=== PATIENT | male | born 1990 | race Hispanic/Latino ===

== ENCOUNTER 2017-07-20 19:32 | Emergency (ER) | payer OTHER ==
[2017-07-20 21:19] LABS: Absolute Lymphocytes (CBC) 2.3 K/uL (0.7-4.9); Absolute Monocytes 0.9 K/uL (0.1-1.3); Absolute Neutrophil 5.2 K/uL (1.8-8.0); Basophils % 0.6 % (0-1.3); Eosinophils % 1.6 % (0-4.4); Hematocrit 42.1 % (39.6-49.0); Lymphocytes % 26.7 % (15.3-44.8); MCH 30.4 pg (27.0-35.0); MCV 88.7 fL (80-100); MPV 9.5 fL (7.6-11.3); Monocytes % 10.6 % (3.3-12.3); RBC Red Blood Cell Count 4.75 M/uL (4.33-5.43)
[2017-07-20 21:27] LABS: Bicarbonate 29 mEq/L (21-31); Glucose Level 99 mg/dL (65-120); Potassium 4.3 mEq/L (3.6-5.0); Sodium Level 139 mEq/L (135-145)
[2017-07-20 21:28] LABS: BUN Blood Urea Nitrogen 14 mg/dL (6-20)
--- NOTE | 2017-07-20 22:24 | ER ---
Nurse's Notes [facility] Name: Bill Braun Age: 27 yrs Sex: Male : 1990 Arrival Date: 07/20/2017 Time: 19:34 Bed 7 Private MD: Diagnosis: Dizziness and giddiness;Cardiac murmurs and other cardiac sounds Presentation: 07/20 19:52 Presenting complaint: Patient states: I had a near syncopal episode at work and I have la1 been having pain in my left testicular area, Pt denies redness or swelling. Transition of care: patient was not received from another setting of care. Onset of symptoms was July 20, 2017. Initial Sepsis Screen: Does the patient meet any 2 criteria? No. Patient's initial sepsis screen is negative. Does the patient have a suspected source of infection? No. Patient's initial sepsis screen is negative. Care prior to arrival: None. 19:52 Method Of Arrival: Ambulatory la1 19:52 Method Of Arrival: Ambulatory la1 19:52 Acuity: NICHOLAS 3 la1 Historical: - Allergies: 19:53 No Known Allergies; la1 - PMHx: 19:53 None; la1 - Immunization history:: Adult Immunizations up to date. - Social history:: Smoking status: Patient/guardian denies using tobacco. Screenin:39 Abuse screen: Denies threats or abuse. Denies injuries from another. Nutritional aa1 screening: No deficits noted. Tuberculosis screening: No symptoms or risk factors identified. Fall Risk None identified. Assessment: 20:39 General: Appears in no apparent distress. comfortable, Behavior is calm, cooperative, aa1 appropriate for age. Pain: Complains of pain in groin Pain currently is 0 out of 10 on a pain scale. Is intermittent. Neuro: Level of Consciousness is awake, alert, obeys commands, Oriented to person, place, time, situation, Moves all extremities. Full function Gait is steady. Cardiovascular: Reports chest pain, which is intermittent Heart tones S1 S2 present Rhythm is regular. Respiratory: Airway is patent Respiratory effort is even, unlabored, Respiratory pattern is regular, symmetrical. GI: No signs and/or symptoms were reported involving the gastrointestinal system. : No signs and/or symptoms were reported regarding the genitourinary system. EENT: No signs and/or symptoms were reported regarding the EENT system. Derm: Skin is intact, is healthy with good turgor, Skin is pink, warm \T\ dry. Musculoskeletal: Circulation, motion, and sensation intact. Capillary refill < 3 seconds. Vital Signs: 19:53 BP 140 / 96; Pulse 76; Resp 19; Temp 98.0(TE); Pulse Ox 100% on R/A; Weight 83.91 kg; la1 Height 5 ft. 8 in. (172.72 cm); 21:20 BP 114 / 95; Pulse 18; Resp 18; Pulse Ox 100% on R/A; mg2 22:33 BP 125 / 78; Pulse 75; Resp 18; Pulse Ox 97% on R/A; Pain 0/10; mg2 19:53 Body Mass Index 28.13 (83.91 kg, 172.72 cm) la1 ED Course: 19:34 Patient arrived in ED. am2 19:53 Triage completed. la1 19:53 Arm band placed on left wrist. la1 20:38 Pawan Marcus PA is PHCP. jr8 20:38 Kike Ty MD is Attending Physician. jr8 20:39 Ruthie Ledezma, RAMONITA is Primary Nurse. aa1 20:39 Patient has correct armband on for positive identification. Bed in low position. Call aa1 light in reach. Pulse ox on. NIBP on. 20:53 EKG done, by ED staff, reviewed by Kike Ty MD. mt 21:07 Inserted saline lock: 20 gauge in right antecubital area, using aseptic technique. mt Blood collected. 21:07 Basic Metabolic Panel Sent. mt 21:08 CBC with Diff Sent. mt 21:15 X-ray completed. Portable x-ray completed in exam room. Patient tolerated procedure kc2 well. 21:17 XRAY Chest (1 view) In Process Unspecified. EDMS 22:23 Chris Galloway MD is Referral Physician. jr8 22:32 No provider procedures requiring assistance completed. intact, bleeding controlled, No mg2 redness/swelling at site. Pressure dressing applied. Administered Medications: No medications were administered Outcome: 22:24 Discharge ordered by . jr8 22:33 Discharged to home ambulatory. mg2 22:33 Condition: stable 22:33 Discharge instructions given to patient, Instructed on discharge instructions, follow up and referral plans. Demonstrated understanding of instructions, follow-up care. 22:33 Patient left the ED. mg2 Signatures: Dispatcher [employer] EDMS Ruthie Ledezma, RAMONITA RN aa1 Pawan Marcus PA PA jr8 Ronaldo Aleman RN RN donna1 Hannah Reid2 Merna Guzman Moriah mt Gardose, Michele, RN RN mg2
--- NOTE | 2017-07-20 22:25 | EDPHYS ---
Physician Documentation [facility] Name: Bill Braun Age: 27 yrs Sex: Male : 1990 Arrival Date: 07/20/2017 Time: 19:34 Bed 7 Private MD: ED Physician Kike Ty HPI: 07/20 21:16 This 27 yrs old Male presents to ER via Ambulatory with complaints of jr8 Dizziness, light headed. 21:16 The patient presents with dizziness. Onset: The symptoms/episode began/occurred jr8 acutely, today. Context: occurred at work, occurred while the patient was at rest. Modifying factors: The symptoms are alleviated by nothing, the symptoms are aggravated by nothing. Associated signs and symptoms: Pertinent positives: chest pain, shortness of breath. Severity of symptoms: At their worst the symptoms were moderate in the emergency department the symptoms have resolved. Patient's baseline: Neuro: alert and fully oriented, Motor: no deficits, Ambulation: walks without assistance, Speech: normal. The patient has not experienced similar symptoms in the past. The patient has not recently seen a physician. Stated that he has also had odd testicular pain with ejaculation. Denies discharge or blood. Denies swelling to testicle . Historical: - Allergies: 19:53 No Known Allergies; la1 - PMHx: 19:53 None; la1 - Immunization history:: Adult Immunizations up to date. - Social history:: Smoking status: Patient/guardian denies using tobacco. ROS: 21:16 Eyes: Negative for injury, pain, redness, and discharge, ENT: Negative for injury, jr8 pain, and discharge, Neck: Negative for injury, pain, and swelling, Abdomen/GI: Negative for abdominal pain, nausea, vomiting, diarrhea, and constipation, Back: Negative for injury and pain, MS/Extremity: Negative for injury and deformity, Skin: Negative for injury, rash, and discoloration. 21:16 Cardiovascular: Positive for chest pain, Negative for edema, orthopnea, palpitations, paroxysmal nocturnal dyspnea. 21:16 Respiratory: Positive for shortness of breath, Negative for cough, dyspnea on exertion, hemoptysis, orthopnea, pleurisy, sputum production, wheezing. 21:16 : Positive for testicular pain Negative for urinary frequency, small amounts, hematuria, flank pain, burning with urination, difficulty urinating, foul smelling urine, penile discharge, penile pain. 21:16 Neuro: Positive for dizziness, Negative for altered mental status, gait disturbance, headache, hearing loss, loss of consciousness, numbness, seizure activity, speech changes, syncope, near syncope, tingling, tinnitus, tremor, visual changes, weakness. Exam: 21:16 Eyes: Pupils equal round and reactive to light, extra-ocular motions intact. Lids and jr8 lashes normal. Conjunctiva and sclera are non-icteric and not injected. Cornea within normal limits. Periorbital areas with no swelling, redness, or edema. ENT: Nares patent. No nasal discharge, no septal abnormalities noted. Tympanic membranes are normal and external auditory canals are clear. Oropharynx with no redness, swelling, or masses, exudates, or evidence of obstruction, uvula midline. Mucous membranes moist. Neck: Trachea midline, no thyromegaly or masses palpated, and no cervical lymphadenopathy. Supple, full range of motion without nuchal rigidity, or vertebral point tenderness. No Meningismus. Respiratory: Lungs have equal breath sounds bilaterally, clear to auscultation and percussion. No rales, rhonchi or wheezes noted. No increased work of breathing, no retractions or nasal flaring. Abdomen/GI: Soft, non-tender, with normal bowel sounds. No distension or tympany. No guarding or rebound. No evidence of tenderness throughout. Back: No spinal tenderness. No costovertebral tenderness. Full range of motion. Skin: Warm, dry with normal turgor. Normal color with no rashes, no lesions, and no evidence of cellulitis. MS/ Extremity: Pulses equal, no cyanosis. Neurovascular intact. Full, normal range of motion. Neuro: Awake and alert, GCS 15, oriented to person, place, time, and situation. Cranial nerves II-XII grossly intact. Motor strength 5/5 in all extremities. Sensory grossly intact. Cerebellar exam normal. Normal gait. 21:16 Cardiovascular: Rate: normal, Rhythm: regular, Pulses: Pulses are 2+ in right radial artery and left radial artery. Heart sounds: S3, increased, Edema: is not appreciated, JVD: is not appreciated. Vital Signs: 19:53 BP 140 / 96; Pulse 76; Resp 19; Temp 98.0(TE); Pulse Ox 100% on R/A; Weight 83.91 kg; la1 Height 5 ft. 8 in. (172.72 cm); 21:20 BP 114 / 95; Pulse 18; Resp 18; Pulse Ox 100% on R/A; mg2 22:33 BP 125 / 78; Pulse 75; Resp 18; Pulse Ox 97% on R/A; Pain 0/10; mg2 19:53 Body Mass Index 28.13 (83.91 kg, 172.72 cm) la1 MDM: 20:38 Patient medically screened. [facility] 22:22 Data reviewed: vital signs, nurses notes, lab test result(s), EKG, radiologic studies, jr plain films, and as a result, I will discharge patient. Data interpreted: Pulse oximetry: on room air is 100 %. Interpretation: normal. Counseling: I had a detailed discussion with the patient and/or guardian regarding: the historical points, exam findings, and any diagnostic results supporting the discharge/admit diagnosis, lab results, radiology results, the need for outpatient follow up, a assistant program director, to return to the emergency department if symptoms worsen or persist or if there are any questions or concerns that arise at home. ED course: Patient with S3 heart tone. Nothing abnormal on imaging or EKG along with blood work. Recommended cardiology f/u with echocardiogram for further evaluation of the S3 since he was having chest tightness and dizziness. Patient would f/u . 07/20 21:01 Order name: CBC with Diff; Complete Time: 21:25 [facility] 07/20 21:01 Order name: Basic Metabolic Panel; Complete Time: 21:29 [facility] 07/20 21:01 Order name: EKG - Nurse/Tech; Complete Time: 21:01 [facility] 07/20 21:01 Order name: XRAY Chest (1 view) [facility] Administered Medications: No medications were administered Disposition: 07/21 08:06 Co-signature as Attending Physician, Kike Ty MD I agree with the assessment and kari plan of care. Disposition: 07/20/17 22:24 Discharged to Home. Impression: Dizziness and giddiness, Cardiac murmurs and other cardiac sounds. - Condition is Stable. - Discharge Instructions: Nonspecific Chest Pain, Dizziness. - Medication Reconciliation Form, Thank You Letter, Antibiotic Education, Prescription Opioid Use form. - Follow up: Chris Galloway MD; When: 5 - 6 days; Reason: Recheck today's complaints, Continuance of care, Re-evaluation by your physician. - Problem is new. - Symptoms have improved. Signatures: Dispatcher [employer] EDKike Barriga MD MD cha Roszak, Josh, PA PA jr8 Ronaldo Aleman RN RN la1 Raleigh Moeller, RN RN mg2 Corrections: (The following items were deleted from the chart) 07/20 22:33 22:24 07/20/2017 22:24 Discharged to Home. Impression: Dizziness and giddiness; Cardiac mg2 murmurs and other cardiac sounds. Condition is Stable. Forms are Medication Reconciliation Form, Thank You Letter, Antibiotic Education, Prescription Opioid Use. Follow up: Chris Galloway; When: 5 - 6 days; Reason: Recheck today's complaints, Continuance of care, Re-evaluation by your physician. Problem is new. Symptoms have improved. jr8
--- NOTE | 2017-07-20 22:43 | RAD REPORT ---
EXAM DESCRIPTION: RAD - Chest Single View - 07/20/2017 9:17 pm CLINICAL HISTORY: Syncope, chest pain COMPARISON: August 2016 TECHNIQUE: AP portable chest image was obtained 2112 hours . FINDINGS: No focal mass, consolidation or failure. Lung markings are similar to comparison, accent[place] j[place]uis slightly by shallow inspiration portable technique. Heart and vasculature are normal. No measurab le pleural effusion and no pneumothorax. No gross bony abnormality seen. No acute aortic findings perla pected. IMPRESSION: No acute cardiopulmonary process. No significant interval change.
[2017-07-20 23:43] VITALS: TEMP 98
[2017-07-20 23:46] VITALS: BP 125/78; O2SAT 97
--- NOTE | 2017-07-21 11:56 | EKG ---
Test Date: 2017-07-20 Test Time: 20:50:03 Multifocal Button Grinder: ROBB MEASUREMENT RESULTS: Intervals: Rate: 68 AK: 182 QRSD: 120 QT: 382 QTc: 406 [place]: P: 58 AK: 182 QRS: -63 T: 22 INTERPRETIVE STATEMENTS: Normal sinus rhythm Left axis deviation Cannot rule out Anterior infarct, age undetermined Abnormal ECG Compared to ECG 09/04/2016 02:48:05 Myocardial infarct finding now present Electronically Signed On 07-21-17 11:54:06 CDT by Noel Sosa
== END 2017-07-20 22:33 | disposition home or self-care (01) ==
LOC: ER 19:32
DX: R01.1 Cardiac murmur, unspecified (principal); R01.2 Other cardiac sounds
CPT/HCPCS: 36415; 71045; 80048; 85025; 93005; 99284

== ENCOUNTER 2018-03-15 12:00 | Emergency (ER) | payer OTHER ==
[2018-03-15 14:10] LABS: Protime INR 1.08
[2018-03-15 14:11] LABS: Absolute Lymphocytes (CBC) 3.4 K/uL (0.7-4.9); Absolute Monocytes 0.7 K/uL (0.1-1.3); Absolute Neutrophil 3.9 K/uL (1.8-8.0); Basophils % 0.7 % (0-1.3); Eosinophils % 1.9 % (0-4.4); Hematocrit 43.6 % (39.6-49.0); Lymphocytes % 41.6 % (15.3-44.8); MPV 8.9 fL (7.6-11.3); Monocytes % 8.5 % (3.3-12.3); RBC Red Blood Cell Count 4.94 M/uL (4.33-5.43)
--- NOTE | 2018-03-15 14:18 | EKG ---
Test Date: 2018-03-15 Test Time: 12:13:28 Doors Prefitter: KAVIN MEASUREMENT RESULTS: Intervals: Rate: 64 UT: 186 QRSD: 118 QT: 388 QTc: 400 [place]: P: 49 UT: 186 QRS: -69 T: 17 INTERPRETIVE STATEMENTS: Normal sinus rhythm Left axis deviation Pulmonary disease pattern Septal infarct, age undetermined Abnormal ECG Compared to ECG 07/20/2017 20:50:03 No significant changes Electronically Signed On 03-15-18 14:17:26 BUFFING LINE SET UP WORKER by Chris Galloway
[2018-03-15 14:29] LABS: BUN Blood Urea Nitrogen 12 mg/dL (7-18); Bicarbonate 27 mmol/L (21-32); Glucose Level 91 mg/dL (74-106); Magnesium 2.3 mg/dL (1.8-2.4); NT PRO-BNP 39 pg/mL (<125); Potassium 3.9 mmol/L (3.5-5.1); Sodium Level 139 mmol/L (136-145); Troponin (Emerg Dept Use Only) < 0.02 ng/mL (0.0-0.045)
--- NOTE | 2018-03-15 15:38 | RAD REPORT ---
EXAM DESCRIPTION: RAD - Chest Single View - 03/15/2018 2:27 pm CLINICAL HISTORY: Chest pain COMPARISON: July 20 TECHNIQUE: AP portable chest image was obtained 1415 hours . FINDINGS: Lung volumes are low. No acute lung parenchymal process. Heart and vasculature are normal. No measurable pleural effusion and no pneumothorax. No acute bony abnormality seen. No acute aortic findings suspected. IMPRESSION: No acute cardiopulmonary process. No significant change from comparison.
--- NOTE | 2018-03-15 15:51 | ER ---
Nurse's Notes [facility] Name: Bill Braun Age: 28 yrs Sex: Male : 1990 Arrival Date: 03/15/2018 Time: 12:03 Bed 13 Private MD: Basil Bazan Diagnosis: Chest pain, unspecified Presentation: 03/15 12:09 Presenting complaint: Patient states: i have pain in chest for a week now, like a hj pressure type of pain, pain is 4/10; non radiating, reports dizziness, lightheaded; reports N/V; denies taking meds [employer];. Transition of care: patient was not received from another setting of care. Onset of symptoms was March 15, 2018. Risk Assessment: Do you want to hurt yourself or someone else? Patient reports no desire to harm self or others. Initial Sepsis Screen: Does the patient meet any 2 criteria? No. Patient's initial sepsis screen is negative. Does the patient have a suspected source of infection? No. Patient's initial sepsis screen is negative. Care prior to arrival: None. 12:09 Method Of Arrival: Ambulatory 12:09 Acuity: NICHOLAS 3 hj Triage Assessment: 12:11 General: Appears in no apparent distress. comfortable, Behavior is calm, cooperative, hj appropriate for age. Pain: Complains of pain in chest. Cardiovascular: Reports chest pain. Historical: - Allergies: 12:11 No Known Allergies; hj - Home Meds: 12:11 None [Active]; hj - PMHx: 12:11 None; hj - PSHx: 12:11 None; hj - Immunization history:: Adult Immunizations up to date. - Social history:: Smoking status: Patient/guardian denies using tobacco, Patient uses alcohol. - Ebola Screening: : Patient negative for fever greater than or equal to 101.5 degrees Fahrenheit, and additional compatible Ebola Virus Disease symptoms Patient denies exposure to infectious person Patient denies travel to an Ebola-affected area in the 21 days before illness onset. Screenin:11 Abuse screen: Denies threats or abuse. Denies injuries from another. Nutritional hj screening: No deficits noted. Tuberculosis screening: No symptoms or risk factors identified. Fall Risk None identified. Assessment: 12:12 Pain: Pain does not radiate. Pain began a week ago. hj 14:01 General: Appears in no apparent distress. uncomfortable, Behavior is calm, cooperative, jl7 appropriate for age. Pain: Complains of pain in chest Pain does not radiate. Pain currently is 4 out of 10 on a pain scale. Quality of pain is described as pressure, Is intermittent. Neuro: Level of Consciousness is awake, alert, obeys commands, Oriented to person, place, time, situation. Cardiovascular: Heart tones S1 S2 present Patient's skin is warm and dry. Respiratory: Airway is patent Respiratory effort is even, unlabored, Respiratory pattern is regular, symmetrical, Breath sounds are clear bilaterally. GI: No signs and/or symptoms were reported involving the gastrointestinal system. : No signs and/or symptoms were reported regarding the genitourinary system. EENT: No signs and/or symptoms were reported regarding the EENT system. Derm: Skin is pink, warm \T\ dry. Musculoskeletal: No signs and/or symptoms reported regarding the musculoskeletal system. 15:08 Reassessment: Patient appears in no apparent distress at this time. No changes from jl7 previously documented assessment. Patient and/or family updated on plan of care and expected duration. Pain level reassessed. Patient is alert, oriented x 3, equal unlabored respirations, skin warm/dry/pink. Vital Signs: 12:12 BP 121 / 67; Pulse 65; Resp 18; Temp 97.6(TE); Pulse Ox 98% on R/A; Weight 83.91 kg; hj Height 5 ft. 8 in. (172.72 cm); Pain 4/10; 14:05 BP 121 / 81; Pulse 59; Resp 16 S; Pulse Ox 98% on R/A; jl7 15:01 BP 113 / 63 Supine; Pulse 58; jl7 15:03 BP 120 / 81 Sitting; Pulse 57; jl7 15:05 BP 118 / 82 Standing; Pulse 61; Resp 16 S; Pulse Ox 98% on R/A; jl7 16:00 BP 119 / 82; Pulse 61; Resp 16 S; Pulse Ox 98% on R/A; jl7 12:12 Body Mass Index 28.13 (83.91 kg, 172.72 cm) ED Course: 12:03 Patient arrived in ED. mr 12:03 Pal Bazan MD is Private Physician. mr 12:03 aBsil Bazan DO is Private Physician. mr 12:10 Triage completed. hj 12:11 Arm band placed on left wrist. hj 12:12 Patient has correct armband on for positive identification. Placed in gown. Bed in low hj position. Call light in reach. Side rails up X 1. patient monitor on. Pulse ox on. NIBP on. 12:12 Patient maintains SpO2 saturation greater than 95% on room air. hj 12:41 EKG done, by electronics engineering technician. reviewed by Dagoberto Carrillo MD. 3 13:39 Maia Giraldo FNP-C is [facility]. kb 13:39 Dagoberto Carrillo MD is Attending Physician. kb 13:49 Celso Sanabria, RAMONITA is Primary Nurse. jl7 14:01 Initial lab(s) drawn, by me, sent to lab. Inserted saline lock: 20 gauge in right jl7 antecubital area, using aseptic technique. Blood collected. 14:26 X-ray completed. Portable x-ray completed in exam room. Patient tolerated procedure jb2 well. 14:27 XRAY Chest (1 view) In Process Unspecified. EDMS 15:54 Basic Metabolic Panel Sent. jl7 16:01 No provider procedures requiring assistance completed. IV discontinued, intact, jl7 bleeding controlled, No redness/swelling at site. Pressure dressing applied. Administered Medications: No medications were administered Outcome: 15:51 Discharge ordered by MD. kb 16:01 Discharged to home ambulatory. jl7 16:01 Condition: stable 16:01 Discharge instructions given to patient, family, Instructed on discharge instructions, follow up and referral plans. Demonstrated understanding of instructions, follow-up care. 16:02 Patient left the ED. jl7 Signatures: Dispatcher [employer] EDMS Maia Giraldo FNP-C FNP-Justine Natalya Ghotra Jesse jb2 Jose Richardson RN RN hj Celso Sanabria, RAMONITA SHIPMAN jl7 Mariluz Araiza 3 Corrections: (The following items were deleted from the chart) 12:16 12:12 Pulse 65bpm; Resp 18bpm; Pulse Ox 98% RA; Temp 97.6F Temporal; 83.91 kg; Height 5 hj ft. 8 in.; BMI: 28.1; Pain 4/10; hj
--- NOTE | 2018-03-15 15:51 | EDPHYS ---
Physician Documentation [facility] Name: Bill Braun Age: 28 yrs Sex: Male : 1990 Arrival Date: 03/15/2018 Time: 12:03 Bed 13 Private MD: Beni [facility] ED Physician Dagoberto Carrillo HPI: 03/15 15:47 This 28 yrs old Male presents to ER via Ambulatory with complaints of Chest kb Pain, Dizziness. 15:47 The patient or guardian reports chest pain that is located primarily in the anterior kb chest wall, left. The pain does not radiate. Associated signs and symptoms: Pertinent positives: dizziness, Pertinent negatives: abdominal pain, cough, diaphoresis, headache, lower extremity pain, lower extremity swelling, lightheadedness, nausea, near syncope, palpitations, recent travel, shortness of breath, syncope, vomiting. The chest pain is described as aching. Duration: The patient or guardian reports a single episode. Modifying factors: The symptoms are alleviated by nothing. the symptoms are aggravated by moving left arm. Severity of pain: At its worst the pain was mild in the emergency department the pain is unchanged. The patient has not experienced similar symptoms in the past. The patient has not recently seen a physician. Pt states he has had chest pain when he moves his arm for a week. "I didn't think anything of it but then I felt a little dizzy earlier so I wanted to get checked out". Historical: - Allergies: 12:11 No Known Allergies; hj - Home Meds: 12:11 None [Active]; hj - PMHx: 12:11 None; hj - PSHx: 12:11 None; hj - Immunization history:: Adult Immunizations up to date. - Social history:: Smoking status: Patient/guardian denies using tobacco, Patient uses alcohol. - Ebola Screening: : Patient negative for fever greater than or equal to 101.5 degrees Fahrenheit, and additional compatible Ebola Virus Disease symptoms Patient denies exposure to infectious person Patient denies travel to an Ebola-affected area in the 21 days before illness onset. ROS: 15:46 Constitutional: Negative for fever, chills, and weight loss, ENT: Negative for injury, kb pain, and discharge, Neck: Negative for injury, pain, and swelling, Respiratory: Negative for shortness of breath, cough, wheezing, and pleuritic chest pain, Abdomen/GI: Negative for abdominal pain, nausea, vomiting, diarrhea, and constipation, Back: Negative for injury and pain, : Negative for injury, bleeding, discharge, and swelling, MS/Extremity: Negative for injury and deformity, Skin: Negative for injury, rash, and discoloration. 15:46 Cardiovascular: Positive for chest pain, Negative for edema, orthopnea, palpitations, paroxysmal nocturnal dyspnea. 15:46 Neuro: Positive for dizziness, Negative for altered mental status, gait disturbance, headache, hearing loss, loss of consciousness, numbness, seizure activity, speech changes, syncope, near syncope, tingling, tinnitus, tremor, visual changes, weakness. Exam: 15:47 Constitutional: This is a well developed, well nourished patient who is awake, alert, kb and in no acute distress. Head/Face: Normocephalic, atraumatic. ENT: Nares patent. No nasal discharge, no septal abnormalities noted. Tympanic membranes are normal and external auditory canals are clear. Oropharynx with no redness, swelling, or masses, exudates, or evidence of obstruction, uvula midline. Mucous membranes moist. Neck: Trachea midline, no thyromegaly or masses palpated, and no cervical lymphadenopathy. Supple, full range of motion without nuchal rigidity, or vertebral point tenderness. No Meningismus. Chest/axilla: Normal chest wall appearance and motion. Nontender with no deformity. No lesions are appreciated. Cardiovascular: Regular rate and rhythm with a normal S1 and S2. No gallops, murmurs, or rubs. Normal PMI, no JVD. No pulse deficits. Respiratory: Lungs have equal breath sounds bilaterally, clear to auscultation and percussion. No rales, rhonchi or wheezes noted. No increased work of breathing, no retractions or nasal flaring. Abdomen/GI: Soft, non-tender, with normal bowel sounds. No distension or tympany. No guarding or rebound. No evidence of tenderness throughout. Skin: Warm, dry with normal turgor. Normal color with no rashes, no lesions, and no evidence of cellulitis. MS/ Extremity: Pulses equal, no cyanosis. Neurovascular intact. Full, normal range of motion. Neuro: Awake and alert, GCS 15, oriented to person, place, time, and situation. Cranial nerves II-XII grossly intact. Motor strength 5/5 in all extremities. Sensory grossly intact. Cerebellar exam normal. Normal gait. Vital Signs: 12:12 BP 121 / 67; Pulse 65; Resp 18; Temp 97.6(TE); Pulse Ox 98% on R/A; Weight 83.91 kg; hj Height 5 ft. 8 in. (172.72 cm); Pain 4/10; 14:05 BP 121 / 81; Pulse 59; Resp 16 S; Pulse Ox 98% on R/A; jl7 15:01 BP 113 / 63 Supine; Pulse 58; jl7 15:03 BP 120 / 81 Sitting; Pulse 57; jl7 15:05 BP 118 / 82 Standing; Pulse 61; Resp 16 S; Pulse Ox 98% on R/A; jl7 16:00 BP 119 / 82; Pulse 61; Resp 16 S; Pulse Ox 98% on R/A; jl7 12:12 Body Mass Index 28.13 (83.91 kg, 172.72 cm) hj MDM: 13:39 Patient medically screened. kb 15:46 Data reviewed: vital signs, nurses notes. Data interpreted: Pulse oximetry: on room air kb is 98 %. Interpretation: normal. Counseling: I had a detailed discussion with the patient and/or guardian regarding: the historical points, exam findings, and any diagnostic results supporting the discharge/admit diagnosis, lab results, radiology results, the need for outpatient follow up, a family practitioner, to return to the emergency department if symptoms worsen or persist or if there are any questions or concerns that arise at home. 03/15 13:39 Order name: Basic Metabolic Panel kb 03/15 13:39 Order name: CBC with Diff; Complete Time: 14:15 kb 03/15 13:39 Order name: Magnesium; Complete Time: 14:36 kb 03/15 13:39 Order name: NT PRO-BNP; Complete Time: 14:36 kb 03/15 13:39 Order name: PT-INR; Complete Time: 14:15 kb 03/15 13:39 Order name: Troponin (emerg Dept Use Only); Complete Time: 14:36 kb 03/15 12:09 Order name: EKG; Complete Time: 12:09 03/15 13:39 Order name: XRAY Chest (1 view); Complete Time: 15:40 kb 03/15 13:39 Order name: Cardiac monitoring; Complete Time: 14:00 kb 03/15 13:39 Order name: EKG - Nurse/Tech; Complete Time: 14:00 kb 03/15 13:39 Order name: IV Saline Lock; Complete Time: 14:00 kb 03/15 13:39 Order name: Labs collected and sent; Complete Time: 14:00 kb 03/15 13:39 Order name: O2 Per Protocol; Complete Time: 14:00 kb 03/15 13:40 Order name: Basic Metabolic Panel; Complete Time: 14:36 EDMS 03/15 13:39 Order name: O2 Sat Monitoring; Complete Time: 14:00 kb 03/15 14:45 Order name: Orthostatics; Complete Time: 15:10 kb Administered Medications: No medications were administered Disposition: 03/16 15:48 Co-signature as Attending Physician, Dagoberto Carrillo MD I agree with the assessment and kdr plan of care. Disposition: 03/15/18 15:51 Discharged to Home. Impression: Chest pain, unspecified. - Condition is Stable. - Discharge Instructions: Nonspecific Chest Pain, [id number]. - Medication Reconciliation Form, Thank You Letter, Antibiotic Education, Prescription Opioid Use form. - Follow up: Emergency Department; When: As needed; Reason: Worsening of condition. Follow up: Private Physician; When: 2 - 3 days; Reason: Recheck today's complaints, Continuance of care, Re-evaluation by your physician. Signatures: Dispatcher [employer] EDHI Maia Giraldo, LIGHTING ADVISER-C LIGHTING ADVISER-Dagoberto Bean MD MD [facility] Jose Richardson RN RN Celso Sanabria RN RN [email or web address] Corrections: (The following items were deleted from the chart) 03/15 16:02 15:51 03/15/2018 15:51 Discharged to Home. Impression: Chest pain, unspecified. [email or web address] Condition is Stable. Forms are Medication Reconciliation Form, Thank You Letter, Antibiotic Education, Prescription Opioid Use. Follow up: Emergency Department; When: As needed; Reason: Worsening of condition. Follow up: Private Physician; When: 2 - 3 days; Reason: Recheck today's complaints, Continuance of care, Re-evaluation by your physician. kb
[2018-03-15 16:16] VITALS: TEMP 97.6; O2SAT 98
[2018-03-15 16:21] VITALS: BP 119/82
== END 2018-03-15 16:02 | disposition home or self-care (01) ==
LOC: ER 12:00
DX: R07.9 Chest pain, unspecified (principal); R42 Dizziness and giddiness
CPT/HCPCS: 36415; 71045; 80048; 83735; 83880; 84484; 85025; 85610; 93005; 99285